=== PATIENT | female | born 1980 | race Caucasian/White ===

== ENCOUNTER 2016-08-12 14:15 | Observation (INO) | payer BC, OTHER ==
[~2016-08-12] VITALS: Ht 157.5 cm; Wt 84.8 kg
[2016-08-12 15:03] LABS: Basophils # (auto) 0 uL; Basophils % (auto) 0.3 % (0.0-2.0); Eosinophils # (auto) 0 uL; Eosinophils % (auto) 0.4 % (0.0-7.0); Hematocrit 41.4 % (36.0-46.0); Hemoglobin 13.8 g/dL (12.2-16.2); Lymphocytes # (auto) 1.5 uL; Lymphocytes % (auto) 16.9 % (10.0-50.0); Mean Corpuscular Hemoglobin 28.3 pg (28.0-32.0); Mean Corpuscular Hgb Conc. 33.4 g/dL (32.0-36.0); Mean Corpuscular Volume 84.7 fL (80.0-100.0); Mean Platelet Volume 10.1 fL (7.4-10.4); Monocytes # (auto) 0.6 uL; Neutrophils # (auto) 6.5 uL; Neutrophils % (auto) 75.4 % (37.0-80.0); Platelet Count (auto) 237 10^3/uL (140-450); Red Cell Distribution Width 15.6 % (11.6-16.0); White Blood Cell 8.6 10^3/uL (4.4-10.8)
[2016-08-12 15:21] LABS: Albumin 3.5 g/dL (3.4-5.0); Anion Gap 8 (5-15); Aspartate Aminotransferase 26 U/L (15-37); BUN/Creatinine Ratio 11.7; Blood Urea Nitrogen 9 mg/dL (7-18); Calcium 8.3 mg/dL (8.5-10.1); Carbon Dioxide 26 mmol/L (21-32); Chloride 104 mmol/L (98-107); GFR African American 111 mL/min; GFR Non-African American 92 mL/min; Glucose 156 mg/dL (74-106); Potassium 3.4 mmol/L (3.5-5.1); Sodium 138 mmol/L (136-145)
[2016-08-12 15:25] LABS: Alkaline Phosphatase 87 U/L (45-117); Bilirubin, Total 0.4 mg/dL (0.2-1.0); Total Protein 7.8 g/dL (6.4-8.2)
[2016-08-12] MEDS ORDERED: ASPirin 81 mg TAB PO ONE (17:30)
[2016-08-12 18:34] LABS: INR 0.93 (0.9-1.15); Partial Thromboplastin Time 27.4 sec (22.64-33.71)
[2016-08-12] MEDS ORDERED: IOHEXOL 350 MG/ML 100ML IJ ONE (19:15)
[2016-08-12 21:12] VITALS: BP 109/66
== END 2016-08-12 21:13 | disposition home or self-care (01) | DRG 313 ==
LOC: ER 14:15 → OVERFLOW 17:25 → ER 21:13
PROVIDERS: ADMIT Family Medicine; ATTEND Family Medicine
DX: R07.89 Other chest pain (principal); R06.02 Shortness of breath; Z83.3 Family history of diabetes mellitus; Z82.49 Family history of ischemic heart disease and other diseases of the circulatory system
CPT/HCPCS: 36415; 71010; 71275; 80053; 81025; 83036; 83735; 84443; 84484; 85025; 85379; 85610; 85730; 93005; 99285; G0378; Q9967

== ENCOUNTER 2016-09-14 19:48 | Emergency (ER) | payer SELFPAY ==
[~2016-09-14] VITALS: Ht 157.5 cm; Wt 83.0 kg
[2016-09-14 20:00] VITALS: BP 103/71
== END 2016-09-14 23:42 | disposition home or self-care (01) ==
LOC: ER 19:52
DX: R20.0 Anesthesia of skin (principal); M79.662 Pain in left lower leg
CPT/HCPCS: 93971

== ENCOUNTER 2016-09-25 10:44 | Emergency (ER) | payer BC ==
[~2016-09-25] VITALS: Ht 157.5 cm; Wt 83.0 kg
[2016-09-25 10:55] VITALS: BP 128/62
[2016-09-25] MEDS ORDERED: KETOROLAC TROMETH 60MG/2ML VIAL IM ONE (14:00)
== END 2016-09-25 15:03 | disposition home or self-care (01) ==
LOC: EDBD 10:44 → ER 10:46
DX: M54.16 Radiculopathy, lumbar region (principal); M48.06 Spinal stenosis, lumbar region; M51.27 Other intervertebral disc displacement, lumbosacral region
CPT/HCPCS: 72131; 96372; 99284; J1885

== ENCOUNTER 2023-03-23 19:21 | Inpatient (IN) | payer BC, OTHER ==
[~2023-03-23] VITALS: Ht 154.9 cm; Wt 90.5 kg
[2023-03-23] MEDS ORDERED: ONDANSETRON HCL 4 MG/2 ML VIAL IV ONE (20:30)
[2023-03-23] MEDS ORDERED: DOCUSATE SOD 100 MG CAP PO PRN (20:30)
[2023-03-23] MEDS ORDERED: ONDANSETRON HCL 4 MG/2 ML VIAL IV PRN (20:30)
[2023-03-23] MEDS ORDERED: ACETAMINOPHEN 325 MG TAB PO PRN (20:30)
[2023-03-23] MEDS ORDERED: DEXTROSE (50%) 50ML SYRG IV PRN (20:30)
[2023-03-23] MEDS ORDERED: NITROGLYCERIN 0.4 MG SL TAB SL PRN (20:30)
[2023-03-23] MEDS ORDERED: MORPHINE SULFATE INJ 2 MG/ml SYRG IV PRN (20:30)
[2023-03-23] MEDS ORDERED: SODIUM CHLORIDE 0.9% 1,000 ML IVB ONE (20:30)
[2023-03-23] MEDS ORDERED: HYDROcodone-ACET 5/325MG TAB PO PRN (20:30)
[2023-03-23] MEDS ORDERED: KETOROLAC TROMETH 30 MG/ML 1ML VIAL IV ONE (20:30)
[2023-03-23 20:58] LABS: Basophils # (auto) 0 10 ^3/uL (0-0.2); Basophils % (auto) 0.4 % (0.0-2.0); Eosinophils # (auto) 0.1 10 ^3/uL (0-0.8); Eosinophils % (auto) 0.7 % (0.0-7.0); Hematocrit 45.9 % (36.0-46.0); Hemoglobin 15.3 g/dL (12.2-16.2); Lymphocytes # (auto) 1.9 10 ^3/uL (0.4-5.4); Lymphocytes % (auto) 17.9 % (10.0-50.0); Mean Corpuscular Hemoglobin 30.1 pg (28.0-32.0); Mean Corpuscular Hgb Conc. 33.4 g/dL (32.0-36.0); Mean Corpuscular Volume 90.2 fL (80.0-100.0); Monocytes # (auto) 0.9 10 ^3/uL (0-1.3); Monocytes % (auto) 8.7 % (0.0-12.0); Neutrophils # (auto) 7.6 10 ^3/uL (1.6-8.6); Neutrophils % (auto) 72.3 % (37.0-80.0); Nucleated Red Blood Cells % 0.1 %; Red Blood Cells 5.09 10^6/uL (4.0-5.20); Red Cell Distribution Width 15.2 % (11.8-14.3); White Blood Cell 10.6 10^3/uL (4.4-10.8)
[2023-03-23 21:13] LABS: Alanine Aminotransferase 68 U/L (7-40); Albumin 4.4 g/dL (3.2-4.8); Alkaline Phosphatase 131 U/L (46-116); Anion Gap 8 (5-15); Aspartate Aminotransferase 42 U/L (13-40); BUN/Creatinine Ratio 12.3 (10.0-20.0); Bilirubin, Total 0.4 mg/dL (0.2-1.0); Blood Urea Nitrogen 13 mg/dL (9-23); Calcium 8.7 mg/dL (8.5-10.1); Carbon Dioxide 22 mmol/L (20-30); Chloride 107 mmol/L (98-107); Glucose 287 mg/dL (74-106); Potassium 4.1 mmol/L (3.5-5.1); Sodium 137 mmol/L (136-145); Total Protein 6.9 g/dL (5.7-8.2)
[2023-03-23 22:13] LABS: Lipase 60 U/L (12-53)
[2023-03-23] MEDS: ACCU-CHEK COMFORT CURVE STRIP VI SCH (22:44)
[2023-03-23] MEDS: InsuLIN REG 1unit/0.01ml Soln (100units/ml) SC SCH (22:51)
[2023-03-23] MEDS: HYDROmorphone HCL 2 MG/ML VL/or syr IV ONE (22:51)
[2023-03-23 23:05] VITALS: PULSE 87; RESP 18; O2SAT 98
[2023-03-24] MEDS: HYDROmorphone HCL 2 MG/ML VL/or syr IV ONE (01:24)
[2023-03-24 05:13] LABS: Basophils # (auto) 0 10 ^3/uL (0-0.2); Basophils % (auto) 0.4 % (0.0-2.0); Eosinophils # (auto) 0.1 10 ^3/uL (0-0.8); Eosinophils % (auto) 0.8 % (0.0-7.0); Hematocrit 42.4 % (36.0-46.0); Hemoglobin 14.1 g/dL (12.2-16.2); Lymphocytes # (auto) 1.9 10 ^3/uL (0.4-5.4); Lymphocytes % (auto) 23.2 % (10.0-50.0); Mean Corpuscular Hemoglobin 30.2 pg (28.0-32.0); Mean Corpuscular Hgb Conc. 33.3 g/dL (32.0-36.0); Mean Corpuscular Volume 90.8 fL (80.0-100.0); Monocytes # (auto) 0.8 10 ^3/uL (0-1.3); Monocytes % (auto) 10.1 % (0.0-12.0); Neutrophils # (auto) 5.4 10 ^3/uL (1.6-8.6); Neutrophils % (auto) 65.5 % (37.0-80.0); Red Blood Cells 4.67 10^6/uL (4.0-5.20); Red Cell Distribution Width 15.4 % (11.8-14.3); White Blood Cell 8.3 10^3/uL (4.4-10.8)
[2023-03-24 05:16] LABS: Anion Gap 7 (5-15); Carbon Dioxide 24 mmol/L (20-30); Chloride 111 mmol/L (98-107); Potassium 4.2 mmol/L (3.5-5.1); Sodium 142 mmol/L (136-145)
[2023-03-24 05:17] LABS: Calcium 8.4 mg/dL (8.5-10.1)
[2023-03-24 05:22] LABS: BUN/Creatinine Ratio 15.5 (10.0-20.0); Blood Urea Nitrogen 11 mg/dL (9-23); Glucose 161 mg/dL (74-106)
[2023-03-24 05:55] LABS: Urine Bacteria FEW /hpf (None Seen); Urine Blood Negative /uL (Negative); Urine Clarity Clear (Clear); Urine Color Yellow (Yellow); Urine Mucus FEW (None Seen); Urine Protein, UAD Negative (Negative); Urine Specific Gravity 1.045 (1.001-1.035); Urine Urobilinogen Normal (Negative); Urine WBC 9 /hpf (0 - 5); Urine pH 5.5 (5.0-8.0)
[2023-03-24] MEDS: ACCU-CHEK COMFORT CURVE STRIP VI SCH ×6 (06:44→21:10)
[2023-03-24] MEDS: InsuLIN REG 1unit/0.01ml Soln (100units/ml) SC SCH ×3 (06:48→17:08)
[2023-03-24 07:45] VITALS: PULSE 87; RESP 14; O2SAT 94
[2023-03-24] MEDS: MORPHINE SULFATE 4 MG/ML SYR/VIAL IV PRN (08:06)
[2023-03-24 09:40] VITALS: BP 136/86; PULSE 84; RESP 16; TEMP 98.4; O2SAT 94
[2023-03-24] MEDS: ENOXAPARIN SOD 40 MG/0.4 ML SYRINGE SC SCH (11:28)
[2023-03-24] MEDS: cefTRIAXone 1GM/50ML D5W 50 ML IV SCH (11:28)
[2023-03-24 12:00] VITALS: RESP 18; O2SAT 96
[2023-03-24] MEDS ORDERED: RIME75TA PO (12:14)
[2023-03-24] MEDS ORDERED: METF-370 PO (12:14)
[2023-03-24] MEDS ORDERED: SEMA2INJ3 SC (12:14)
[2023-03-24 12:42] VITALS: BP 121/46; PULSE 72; RESP 18; TEMP 98.3; O2SAT 93
[2023-03-24] MEDS: methylPREDNISolone SOD SUCC 125 MG/2 ML VL IV SCH ×3 (13:08→21:01)
[2023-03-24] MEDS ORDERED: DEXTROSE (50%) 50ML SYRG IV PRN (16:00)
[2023-03-24 17:00] VITALS: BP 133/83; PULSE 78; RESP 20; TEMP 98.3; O2SAT 97
[2023-03-24 22:00] VITALS: BP 107/29; PULSE 87; RESP 20; TEMP 98.4; O2SAT 95
[2023-03-24] MEDS ORDERED: InsuLIN REG 1unit/0.01ml Soln (100units/ml) SC SCH (22:00)
[2023-03-25] MEDS: MORPHINE SULFATE 4 MG/ML SYR/VIAL IV PRN (02:54)
[2023-03-25 05:00] VITALS: BP 131/74; PULSE 83; RESP 20; TEMP 98.1; O2SAT 93
[2023-03-25] MEDS: methylPREDNISolone SOD SUCC 125 MG/2 ML VL IV SCH ×2 (05:52→11:34)
[2023-03-25] MEDS: ACCU-CHEK COMFORT CURVE STRIP VI SCH ×4 (06:00→11:30)
[2023-03-25] MEDS: InsuLIN REG 1unit/0.01ml Soln (100units/ml) SC SCH ×2 (06:01→11:30)
[2023-03-25 06:53] LABS: Basophils # (auto) 0 10 ^3/uL (0-0.2); Basophils % (auto) 0.1 % (0.0-2.0); Eosinophils # (auto) 0 10 ^3/uL (0-0.8); Hematocrit 45.3 % (36.0-46.0); Lymphocytes # (auto) 1.1 10 ^3/uL (0.4-5.4); Lymphocytes % (auto) 6.7 % (10.0-50.0); Mean Corpuscular Hgb Conc. 33.1 g/dL (32.0-36.0); Mean Corpuscular Volume 90.7 fL (80.0-100.0); Monocytes # (auto) 0.4 10 ^3/uL (0-1.3); Monocytes % (auto) 2.8 % (0.0-12.0); Neutrophils # (auto) 14.1 10 ^3/uL (1.6-8.6); Neutrophils % (auto) 90.4 % (37.0-80.0); Nucleated Red Blood Cells % 0.1 %; White Blood Cell 15.6 10^3/uL (4.4-10.8)
[2023-03-25 07:13] LABS: Anion Gap 8 (5-15); Calcium 9.4 mg/dL (8.7-10.4); Carbon Dioxide 25 mmol/L (20-30); Chloride 106 mmol/L (98-107); Potassium 4.2 mmol/L (3.5-5.1); Sodium 139 mmol/L (136-145)
[2023-03-25 07:19] LABS: BUN/Creatinine Ratio 14.9 (10.0-20.0); Blood Urea Nitrogen 10 mg/dL (9-23); Glucose 195 mg/dL (74-106)
[2023-03-25] MEDS: ENOXAPARIN SOD 40 MG/0.4 ML SYRINGE SC SCH (09:10)
[2023-03-25] MEDS: cefTRIAXone 1GM/50ML D5W 50 ML IV SCH (09:17)
[2023-03-25 09:26] VITALS: BP 138/74; PULSE 79; RESP 20; TEMP 97.9; O2SAT 93
[2023-03-25] MEDS ORDERED: PANTOPRAZOLE 40 MG/10 ML VIAL INJ IV SCH (10:00)
[2023-03-25] MEDS ORDERED: METH4PAK PO (10:42)
[2023-03-25] MEDS ORDERED: ZOFR4T PO (10:42)
[2023-03-25] MEDS ORDERED: SENN-58 PO (10:42)
[2023-03-25] MEDS ORDERED: DOCU-94 PO (10:42)
[2023-03-25] MEDS ORDERED: PANT40TA2 PO (10:42)
[2023-03-25] MEDS ORDERED: HYDR-4798 PO (10:42)
== END 2023-03-25 11:40 | disposition home or self-care (01) | DRG 552 ==
LOC: ER 19:21 → OVERFLOW 20:40 → WEST WING 03-24 11:09
PROVIDERS: ADMIT Nurse Practitioner Family; ATTEND Nurse Practitioner Family
DX: M51.16 Intervertebral disc disorders with radiculopathy, lumbar region (principal); N39.0 Urinary tract infection, site not specified; E11.65 Type 2 diabetes mellitus with hyperglycemia; E66.01 Morbid (severe) obesity due to excess calories; G43.909 Migraine, unspecified, not intractable, without status migrainosus; G89.29 Other chronic pain; Z68.37 Body mass index [BMI] 37.0-37.9, adult; Z82.49 Family history of ischemic heart disease and other diseases of the circulatory system; Z83.3 Family history of diabetes mellitus; Z90.49 Acquired absence of other specified parts of digestive tract
CPT/HCPCS: 36415; 72148; 76705; 80048; 80053; 81001; 82962; 83690; 85025; 87086; 96361; 96374; 96375; C9113; G0378; J0696; J1815; J1885; J2405

== ENCOUNTER 2023-07-03 11:28 | Emergency (ER) | payer OTHER ==
[~2023-07-03] VITALS: Ht 157.5 cm; Wt 87.7 kg
[~2023-07-03 11:28] MED LIST: DOCU-94 PO; HYDR-4798 PO; METF-370 PO; METH4PAK PO; PANT40TA2 PO; RIME75TA PO; SEMA2INJ3 SC; SENN-58 PO; ZOFR4T PO
[2023-07-03 12:59] VITALS: BP 147/76; PULSE 93; RESP 18; TEMP 98.2; O2SAT 95
[2023-07-03 13:04] LABS: Urine Bacteria FEW /hpf (None Seen); Urine Blood 3+ /uL (Negative); Urine Clarity HAZY (Clear); Urine Color Yellow (Yellow); Urine Mucus FEW (None Seen); Urine Protein, UAD TRACE (Negative); Urine Specific Gravity 1.026 (1.001-1.035); Urine Urobilinogen Normal (Negative); Urine WBC 9 /hpf (0 - 5); Urine pH 5.5 (5.0-8.0)
[2023-07-03 13:25] LABS: Basophils # (auto) 0.1 10 ^3/uL (0-0.2); Basophils % (auto) 0.6 % (0.0-2.0); Eosinophils # (auto) 0 10 ^3/uL (0-0.8); Eosinophils % (auto) 0.2 % (0.0-7.0); Hematocrit 47.1 % (36.0-46.0); Hemoglobin 15.6 g/dL (12.2-16.2); Lymphocytes # (auto) 1.6 10 ^3/uL (0.4-5.4); Lymphocytes % (auto) 10.5 % (10.0-50.0); Mean Corpuscular Hemoglobin 29.7 pg (28.0-32.0); Mean Corpuscular Hgb Conc. 33.1 g/dL (32.0-36.0); Mean Corpuscular Volume 89.7 fL (80.0-100.0); Monocytes # (auto) 1.4 10 ^3/uL (0-1.3); Monocytes % (auto) 9.1 % (0.0-12.0); Neutrophils # (auto) 12.3 10 ^3/uL (1.6-8.6); Neutrophils % (auto) 79.6 % (37.0-80.0); Nucleated Red Blood Cells % 0.1 %; Red Blood Cells 5.25 10^6/uL (4.0-5.20); Red Cell Distribution Width 15.7 % (11.8-14.3); White Blood Cell 15.5 10^3/uL (4.4-10.8)
[2023-07-03 13:38] LABS: Alanine Aminotransferase 89 U/L (7-40); Albumin 4.5 g/dL (3.2-4.8); Alkaline Phosphatase 114 U/L (46-116); Anion Gap 8 (5-15); Aspartate Aminotransferase 46 U/L (13-40); BUN/Creatinine Ratio 12.6 (10.0-20.0); Bilirubin, Total 0.7 mg/dL (0.2-1.0); Blood Urea Nitrogen 11 mg/dL (9-23); Calcium 9.6 mg/dL (8.7-10.4); Carbon Dioxide 26 mmol/L (20-30); Chloride 108 mmol/L (98-107); Glucose 140 mg/dL (74-106); Lipase 38 U/L (12-53); Sodium 142 mmol/L (136-145); Total Protein 7.3 g/dL (5.7-8.2)
[2023-07-03] MEDS: SODIUM CHLORIDE 0.9% 1,000 ML IV ONE (14:11)
[2023-07-03] MEDS: ONDANSETRON HCL 4 MG/2 ML VIAL IV ONE (14:44)
[2023-07-03] MEDS: cefTRIAXone 1GM/50ML D5W 50 ML IV ONE (14:44)
[2023-07-03] MEDS: KETOROLAC TROMETH 30 MG/ML 1ML VIAL IV ONE (14:44)
[2023-07-03] MEDS ORDERED: TAMS-35 PO (15:11)
[2023-07-03] MEDS ORDERED: IBUP-1456 PO (15:11)
== END 2023-07-03 15:25 | disposition home or self-care (01) ==
LOC: ER 11:28
DX: N20.0 Calculus of kidney (principal); N83.292 Other ovarian cyst, left side; Z98.890 Other specified postprocedural states; Z79.899 Other long term (current) drug therapy
CPT/HCPCS: 36415; 74176; 80053; 81001; 81025; 83690; 85025; 96361; 96365; 96375; 99285; J0696; J1885; J2405; J7030